=== PATIENT | female | born 1960 | race Caucasian/White ===

== ENCOUNTER → 2016-12-28 | Outpatient (CLI) | payer OTHER ==
[~2016-12-28] MED LIST: ASPI81CH2 PO; ATEN50TA21 PO; CYCL10TA6 PO; GABA1CAP PO; GLC/500 PO; MAGN400T5 PO; MULT-506 PO; OMEGCAP2 PO; POTA-327 PO; POTA20TA16 PO; RANI300T2 PO; TPRSR50 PO
--- NOTE | 2016-12-28 14:49 | DIAGNOSTIC IMAGING REPORT ---
MRI LUMBAR SPINE W/O CONTRAST CLINICAL HISTORY: Low back pain and bilateral leg radiculopathy. TECHNIQUE: Sagittal and axial T1, T2 and STIR images were obtained. COMPARISON STUDY: No previous studies for comparison. OBSERVATIONS: The vertebral bodies and posterior elements appear intact. There is no abnormal bony signal present to suggest a marrow replacement process. L1-2: No disc protrusions or extrusions. No evidence of spinal canal or neural foraminal compromise. L2-3: No disc protrusions or extrusions. No evidence of spinal canal or neural foraminal compromise. L3-4: There is a minor circumferential disc bulge. There is no significant spinal or foraminal stenosis L4-5: There is a disc bulge and small right paracentral disc protrusion. There is mild spinal canal narrowing. There is no significant foraminal stenosis. L5-S1: There is a small broad-based central disc protrusion. There is slight effacement of the anterior thecal sac. There is no significant foraminal narrowing. The conus medullaris and cauda equina appear normal. IMPRESSION: 1. Disc bulge and small right paracentral disc protrusion at the L4-5 level. 2. Small broad-based central disc protrusion at the L5-S1 level. Electronically signed by: Jacob Naranjo M.D. 12/28/2016 2:48 PM Dictated Date/Time: 12/28/2016 2:45 PM
== END | disposition home or self-care (01) ==
LOC: C.MRI 13:29
PROVIDERS: ATTEND Physical Medicine & Rehabilitation
DX: M51.36 Other intervertebral disc degeneration, lumbar region (principal); M51.17 Intervertebral disc disorders with radiculopathy, lumbosacral region

== ENCOUNTER 2017-01-30 13:47 | Emergency (ER) | payer OTHER ==
[~2017-01-30] VITALS: Ht 154.9 cm; Wt 90.0 kg
[~2017-01-30 13:47] MED LIST changes: -ASPI81CH2 PO; -GABA1CAP PO; -MAGN400T5 PO; -POTA20TA16 PO; -TPRSR50 PO
[2017-01-30] MEDS ORDERED: SODIUM CHLORIDE 0.9% 1000ML 1,000 ML IV ONE (14:15)
[2017-01-30] MEDS ORDERED: MoRPHine SULFATE 4 MG/ML 1 ML CARP\\VIAL IV STA (14:24)
[2017-01-30] MEDS ORDERED: ACETAMINOPHEN IV 1,000 MG in EMPTY BAG 0 ML IV STA (14:27)
[2017-01-30 14:47] VITALS: Ht 154.9 cm; Wt 90.0 kg
[2017-01-30 14:55] LABS: URINE APPEARANCE CLEAR (CLEAR); URINE BILIRUBIN NEG (NEG); URINE COLOR YELLOW; URINE EPITHELIAL CELL AUTO >30 /lpf (0-5); URINE NITRITE NEG (NEG); URINE SPECIFIC GRAVITY 1.014 (1.000-1.030); UROBILINOGEN NEG (NEG)
[2017-01-30 14:57] LABS: BASO % 0.5 %; BASO ABS # 0.03 K/uL (0-0.2); COMPLETE YES; EOS % 0.5 %; HEMATOCRIT 44.3 % (37-47); IG% 0.2 %; LYMPH % 17.8 %; LYMPH ABS # 1.01 K/uL (1.2-3.4); MEAN CORPUSCULAR HEMOGLOBIN 30.7 pg (25-34); MEAN CORPUSCULAR HGB CONC 34.1 g/dl (32-36); MEAN PLATELET VOLUME 9.4 fL (7.4-10.4); MONO % 7.9 %; NEUT % 73.1 %; PLATELET COUNT 259 K/uL (130-400); RED BLOOD COUNT 4.92 M/uL (4.2-5.4); WHITE BLOOD COUNT 5.67 K/uL (4.8-10.8)
[2017-01-30 14:58] LABS: MANUAL MICROSCOPIC REQUIRED? NO; REVIEW REQ? NO
[2017-01-30 15:01] LABS: ISTAT CREATININE 0.7 mg/dl (0.6-1.3); ISTAT HEMOGLOBIN 16.7 g/dl (12.0-16.0); ISTAT IONIZED CALCIUM 1.12 mmol/l (1.12-1.32)
[2017-01-30 15:04] VITALS: O2SAT 95
--- NOTE | 2017-01-30 15:04 | EMERGENCY ROOM VISIT NOTE ---
History First contact with patient: 14:06 Chief Complaint: BACK PAIN Stated Complaint: BACK PAIN,CHILLS History of Present Illness The patient is a 56 year old female who presents to the Emergency Room with complaints of low back pain and generalized body aches since yesterday, that got much worse this morning. Patient states history of degenerative disc disease in her low back and sciatica, states she feels this is flaring up. She denies any injury to her lower back, bending or lifting heavy objects recently, denies any numbness or weakness in the legs, difficulty walking, saddle paresthesias, or bowel/bladder dysfunction. She states she was at a fair yesterday and got a significant sunburn. She also states she has not been eating and drinking well and feels dehydrated. She complains of dysuria for the past few days. Some associated chills and nausea, denies vomiting, diarrhea , constipation, hematuria, abdominal pain, chest pain, shortness of breath, palpitations, dizziness or syncope. She took Motrin and her prescribed cyclobenzaprine last night for the pain and muscle spasms, with good improvement. She has not taken any medications for pain today. Review of Systems GENERAL: + Fevers, chills, fatigue. HEENT: Denies dizziness, visual problems, hearing loss, tinnitus. Denies difficulty swallowing or oral lesions. PULMONARY: Denies cough, shortness of breath, sputum production or hemoptysis. CARDIOVASCULAR: Denies chest pain, palpitations, dyspnea on exertion, orthopnea or peripheral edema. GASTROINTESTINAL: Denies diarrhea, constipation, nausea, vomiting, or abdominal pain. GENITOURINARY: + Dysuria. Denies frequency, urgency or nocturia. Denies hematuria. NEUROLOGIC: Denies history of epilepsy, CVA, TIA or chronic headaches. MUSCULOSKELETAL: + Low back pain. Denies history of joint tenderness/swelling. SKIN: Denies rashes or lesions. + Sunburn. PSYCHIATRIC: Denies history of depression or mental illness. ENDOCRINE: + History of diabetes on oral medications. Past Medical/Surgical History Medical Problems: (1) Arthritis (2) Diabetes (3) GERD (gastroesophageal reflux disease) (4) Hypertension Family History No pertinent family history Social History Smoking Status: Never Smoker Marital Status: Housing Status: lives with significant other Occupation Status: unemployed Current/Historical Medications Scheduled Atenolol & Chlorthalidone (Tenoretic 50MG/25MG), 1 TAB PO DAILY Metformin Hcl (Glucophage), 500 MG PO BID Multivitamin (Multivitamin), 1 TAB PO DAILY Ranitidine (Zantac), 300 MG PO BID Allergies Coded Allergies: Aspirin (Verified Adverse Reaction, Unknown, nausea, 02/08/12) Physical Exam Vital Signs Date Time Temp Pulse Resp B/P (MAP) Pulse Ox O2 Delivery O2 Flow Rate FiO2 01/30/17 19:20 38.0 01/30/17 18:53 38.5 102 18 118/84 96 Room Air 01/30/17 18:35 95 16 117/77 95 Nasal Cannula 2.0 01/30/17 16:40 88 16 105/63 97 Room Air 01/30/17 15:45 88 18 99/65 97 Room Air 01/30/17 15:06 91 01/30/17 15:04 88 Room Air 01/30/17 15:04 95 Nasal Cannula 2.0 01/30/17 14:46 94 Room Air 01/30/17 14:46 96 16 113/69 94 Room Air 01/30/17 13:49 39.2 109 18 152/95 93 Room Air Physical Exam CONSTITUTIONAL: No acute distress. Nontoxic appearing. Well appearing and well nourished. Moderately dehydrated. Alert and oriented X 4 with normal affect. HEENT: Normocephalic, atraumatic. Pupils equal, round and reactive to light, EOMI. TMs normal. Pharynx normal. Dry mucous membranes. NECK: Supple, full active range of motion without discomfort. RESPIRATORY: Clear to auscultation bilaterally with no wheezing, crackles, rhonchi or stridor. Equal expansion bilaterally. CARDIOVASCULAR: Regular rate and rhythm with no murmurs, rubs or gallops. Normal peripheral perfusion. No edema. GASTROINTESTINAL: Soft, nontender, nondistended. Bowel sounds present in all quadrants. No CVA tenderness. MUSCULOSKELETAL: Full range of motion of all joints without discomfort. Bilateral paraspinal musculoskeletal tenderness to palpation. No midline spinal tenderness or step-off. INTEGUMENTARY: No rash or other significant dermatologic conditions noted. Severe sunburn noted to upper chest, upper back, bilateral arms, tender to palpation, no blistering noted. NEUROLOGIC: Cranial nerves II-XII grossly intact. No focal neurologic deficits noted. Normal motor, normal sensation, normal reflexes of bilateral lower extremities, normal coordination, normal gait. Normal perineal sensation. Medical Decision & Procedures ER Provider Diagnostic Interpretation: SINGLE VIEW CHEST CLINICAL HISTORY: Fever. Sepsis. FINDINGS: An AP, portable, upright chest radiograph is obtained. No prior studies are available for comparison at the time of dictation. The examination is degraded by portable technique and patient rotation. The cardiomediastinal silhouette is unremarkable. There is mild elevation of the right hemidiaphragm. The lungs and pleural spaces are clear. No pneumothorax is seen. The skeletal structures are osteopenic. The bony thorax is grossly intact. Degenerative change is seen throughout the thoracic spine. IMPRESSION: No acute cardiopulmonary abnormality. Laboratory Results 01/30/17 14:30 Red Blood Count 4.92, Mean Corpuscular Volume 90.0, Mean Corpuscular Hemoglobin 30.7, Mean Corpuscular Hemoglobin Concent 34.1, Mean Platelet Volume 9.4, Neutrophils (%) (Auto) 73.1, Lymphocytes (%) (Auto) 17.8, Monocytes (%) (Auto) 7.9, Eosinophils (%) (Auto) 0.5, Basophils (%) (Auto) 0.5, Neutrophils # (Auto) 4.14, Lymphocytes # (Auto) 1.01, Monocytes # (Auto) 0.45, Eosinophils # (Auto) 0.03, Basophils # (Auto) 0.03 01/30/17 14:30 Test 01/30/17 14:05 01/30/17 14:30 01/30/17 14:47 01/30/17 15:13 Urine Color YELLOW Urine Appearance CLEAR (CLEAR) Urine pH 7.0 (4.5-7.5) Urine Specific [place] 1.014 (1.000-1.030) Urine Protein NEG (NEG) Urine Glucose (UA) NEG (NEG) Urine Ketones NEG (NEG) Urine Occult Blood NEG (NEG) Urine Nitrite NEG (NEG) Urine Bilirubin NEG (NEG) Urine Urobilinogen NEG (NEG) Urine Leukocyte Esterase NEG (NEG) Urine WBC (Auto) 0 /hpf (0-5) Urine RBC (Auto) 0-4 /hpf (0-4) Urine Hyaline Casts (Auto) 0 /lpf (0-5) Urine Epithelial Cells (Auto) >30 /lpf (0-5) Urine Bacteria (Auto) NEG (NEG) White Blood Count 5.67 K/uL (4.8-10.8) Red Blood Count 4.92 M/uL (4.2-5.4) Hemoglobin 15.1 g/dL (12.0-16.0) Hematocrit 44.3 % (37-47) Mean Corpuscular Volume 90.0 fL (80-100) Mean Corpuscular Hemoglobin 30.7 pg (25-34) Mean Corpuscular Hemoglobin Concent 34.1 g/dl (32-36) Platelet Count 259 K/uL (130-400) Mean Platelet Volume 9.4 fL (7.4-10.4) Neutrophils (%) (Auto) 73.1 % Lymphocytes (%) (Auto) 17.8 % Monocytes (%) (Auto) 7.9 % Eosinophils (%) (Auto) 0.5 % Basophils (%) (Auto) 0.5 % Neutrophils # (Auto) 4.14 K/uL (1.4-6.5) Lymphocytes # (Auto) 1.01 K/uL (1.2-3.4) Monocytes # (Auto) 0.45 K/uL (0.11-0.59) Eosinophils # (Auto) 0.03 K/uL (0-0.5) Basophils # (Auto) 0.03 K/uL (0-0.2) RDW Standard Deviation 46.2 fL (36.4-46.3) RDW Coefficient of Variation 14.0 % (11.5-14.5) Immature Granulocyte % (Auto) 0.2 % Immature Granulocyte # (Auto) 0.01 K/uL (0.00-0.02) Est Creatinine Clear Calc Drug Dose 65.4 ml/min Estimated GFR () 74.7 Estimated GFR (Non- 64.5 BUN/Creatinine Ratio 12.5 (10-20) Calcium Level 9.1 mg/dl (8.5-10.1) Magnesium Level 1.4 mg/dl (1.8-2.4) Total Bilirubin 0.8 mg/dl (0.2-1) Direct Bilirubin 0.1 mg/dl (0-0.2) Aspartate Amino Transf (AST/SGOT) 28 U/L (15-37) Alanine Aminotransferase (ALT/SGPT) 46 U/L (12-78) Alkaline Phosphatase 102 U/L (45-117) Total Protein 8.4 gm/dl (6.4-8.2) Albumin 4.1 gm/dl (3.4-5.0) Bedside Hemoglobin 16.7 g/dl (12.0-16.0) Bedside Hematocrit 49 % (37-47) Bedside Sodium 139 mEq/L (135-144) Bedside Potassium 3.2 mEq/L (3.3-5.0) Bedside Chloride 92 mEq/L (101-112) Bedside Total CO2 27 mEq/l (24-31) Anion Gap 24.0 mmol/L (16-25) Bedside Blood Urea Nitrogen 13 mg/dl (7-18) Bedside Creatinine 0.7 mg/dl (0.6-1.3) Bedside Glucose (other) 188 mg/dl (70-99) Bedside Ionized Calcium (Sou[place]a) 1.12 mmol/l (1.12-1.32) Bedside Glucose 154 mg/dl (70-90) Test 01/30/17 18:21 Bedside Lactic Acid Venous 1.48 mmol/L (0.90-1.70) Medications Administered Medications (Trade) Dose Ordered Sig/Maureen Route Start Time Stop Time Status Last Admin Dose Admin Sodium Chloride 1,000 ml @ 2,000 mls/hr Q30M ONCE IV 01/30/17 14:15 01/30/17 14:44 DC 01/30/17 15:01 2,000 MLS/HR Morphine Sulfate (MoRPHine SULFATE INJ) 4 mg NOW STAT IV 01/30/17 14:24 01/30/17 14:25 DC 01/30/17 15:00 4 MG Acetaminophen 1000 mg/Empty Bag 100 ml @ 400 mls/hr NOW STAT IV 01/30/17 14:27 01/30/17 14:41 DC 01/30/17 15:01 400 MLS/HR Magnesium Sulfate (Magnesium Sulfate) 1 gm NOW STAT IV 01/30/17 15:36 01/30/17 15:37 DC 01/30/17 16:22 1 GM Potassium Chloride (Klor-Con M10) 40 meq NOW STAT PO 01/30/17 15:36 01/30/17 15:37 DC 01/30/17 16:22 40 MEQ Sodium Chloride 1,000 ml @ 999 mls/hr Q1H1M STAT IV 01/30/17 17:08 01/30/17 18:08 DC 01/30/17 17:10 999 MLS/HR Ketorolac Tromethamine (Toradol Inj) 15 mg NOW STAT IV 01/30/17 18:57 01/30/17 18:58 DC 01/30/17 19:04 15 MG Medical Decision CC: Patient presenting with complaint of low back pain, body aches, chills Interpretation of Labs: No leukocytosis, no anemia, mild hypokalemia and hypomagnesemia, no other significant abnormalities, normal renal function, normal liver function and lipase. No UTI. Initial lactate slightly elevated, improved and within normal limits after IV hydration. Differential Diagnosis: Includes, but not limited to UTI, pyelonephritis, dehydration, sun poisoning, sepsis. Medication Reconciliation: I attest that I have personally reviewed the patient' s current medication list. Vital signs review: I reviewed the patient's vital signs and interpret them as follows: T: Afebrile; BP: Hypertensive; HR: Tachycardic; RR: Within normal limits; Pulse Ox: Within normal limits. Vital sign reassessment: Fever downtrending, tachycardia improved, normotensive. Blood pressure screening: The patient was found to have normal blood pressure on screening and does not require follow-up for repeat blood pressure check. Summary: Patient was evaluated at bedside, history of physical exam performed. Patient is alert and oriented, nontoxic appearing, moderately dehydrated. Patient noted to be febrile and mildly tachycardic on arrival. Patient noted to have sunburn on her chest and upper back, and bilateral arms, no blistering noted. Hot to the touch. Patient does have bilateral low back pain, no midline tenderness or step-offs. No concerning history or exam findings for cauda equina. Neurologic exam is normal with no deficits, normal strength and sensation in all 4 extremities, normal reflexes bilateral legs, normal perineal sensation. Rectal exam deferred. Orders were placed at bedside for labs, UA and culture, blood cultures, IV fluid boluses to evaluate for possible infection. Urine dip is unimpressive for infection, UA sent to lab. Patient discussed with Dr. Beal, who agrees with my assessment and plan. Labs reviewed, electrolyte abnormalities as above, with replacement given. No other significant abnormalities. Chest x-ray reviewed, no acute abnormalities. Urinalysis is negative for UTI. Slightly elevated lactic acid noted, suspect most likely secondary to dehydration, with noted resolution after IV fluid hydration. No identifiable source of infection. On further review of history, I suspect patient's symptoms are most likely related to sun exposure and dehydration. Patient reassessed multiple times throughout ED stay, her pain is much improved after medications. She also states she feels much better after IV hydration and has been able to urinate without discomfort. I discussed all results with the patient and plan for discharge. I encouraged her to follow closely with her PCP, as well as return precautions should her symptoms worsen. Patient verbalized understanding of all discharge instructions. She was discharged home in stable condition and ambulatory. Impression Primary Impression: Dehydration, moderate Additional Impressions: Sun exposure, moderate Hypokalemia Hypomagnesemia Departure Information Dispostion Home / Self-Care Condition GOOD Referrals Cee Lombardi M.D. (PCP) Patient Instructions [facility], Sunburn Additional Instructions You have been treated in the Emergency Department today for sunburn and dehydration. Laboratory results have ruled out any emergent reasons for further evaluation or admission. It is ESSENTIAL that you maintain adequate hydration with oral fluids! Some suggestions include: - Water is the IDEAL replacement for lost fluids. You should initially sip at the water to help facilitate increased intestinal absorption rate and to decrease the possibility of nausea/vomiting. - Carbohydrate/Electrolyte-Containing Drinks (i.e. Gatorade, Powerade, Pedialyte). All of these are good choices, but it is important to remember that all of these drinks contain a high concentration of sugar. - Popsicles, ice chips, and fruit juices are all other options. - My FAVORITE dehydration remedy is to mix a 1:1 solution of bottled Gatorade with bottled water. This dilution allows for a palatable flavor with added benefit of a reduction in the amount of sugar consumption. You have a bad sunburn. You may develop blisters over your sunburn in the next 1-2 days. If this occurs, keep the skin clean and dry and monitor for signs of infection. You may apply cool compresses to the area of sunburn for comfort. Aloe vera gel is also helpful for improving sunburn pain. Tylenol or ibuprofen as needed for pain. You should avoid significant sun exposure for the next several days until your sunburn is healed. Always apply sunscreen with SPF 30 or higher when you're going to be out in the sun for prolonged periods of time. As with all Emergency Department visits, you should follow-up with your Primary Care Provider in 1-2 days for reevaluation. You should have repeat blood work in the next week to check your potassium level. Return to the Emergency Department if your current symptoms worsen despite treatment course outlined above, or if you develop any of the following symptoms : increased thirst, weakness, dizziness, palpitations, confusion, sluggishness, fainting, inability to sweat, persistent fever/chills, or decreased urine output. Problem Qualifiers Additional Impressions: Sun exposure, moderate Encounter type: initial encounter Qualified Codes: X32.XXXA - Exposure to sunlight, initial encounter
--- NOTE | 2017-01-30 15:08 | DIAGNOSTIC IMAGING REPORT ---
SINGLE VIEW CHEST CLINICAL HISTORY: Fever. Sepsis. FINDINGS: An AP, portable, upright chest radiograph is obtained. No prior studies are available for comparison at the time of dictation. The examination is degraded by portable technique and patient rotation. The cardiomediastinal silhouette is unremarkable. There is mild elevation of the right hemidiaphragm. The lungs and pleural spaces are clear. No pneumothorax is seen. The skeletal structures are osteopenic. The bony thorax is grossly intact. Degenerative change is seen throughout the thoracic spine. IMPRESSION: No acute cardiopulmonary abnormality. Electronically signed by: Ja Nelson M.D. 01/30/2017 3:07 PM Dictated Date/Time: 01/30/2017 3:06 PM
[2017-01-30 15:17] LABS: BUN/CREATININE RATIO 12.5 (10-20); CALCIUM 9.1 mg/dl (8.5-10.1); CREATININE 0.98 mg/dl (0.60-1.20); POTASSIUM 3.2 mmol/L (3.5-5.1)
[2017-01-30 15:34] LABS: MAGNESIUM 1.4 mg/dl (1.8-2.4)
[2017-01-30] MEDS ORDERED: MAGNESIUM SULFATE 1GM / D5W 1 GM BAG IV STA (15:36)
[2017-01-30] MEDS ORDERED: POTASSIUM CHLORIDE 10 MEQ TABCR PO STA (15:36)
[2017-01-30] MEDS ORDERED: SODIUM CHLORIDE 0.9% 1000ML 1,000 ML IV STA (17:08)
[2017-01-30 18:53] VITALS: BP 118/84; PULSE 102; O2SAT 96
[2017-01-30] MEDS ORDERED: KETOROLAC TROMETHAMINE 30 MG/ML VIAL IV STA (18:57)
[2017-01-30 19:20] VITALS: TEMP 38
[2017-03-04] MEDS ORDERED: POTA20TA16 PO (11:35)
[2017-03-04] MEDS ORDERED: MULT-506 PO (11:35)
[2017-03-04] MEDS ORDERED: GABA1CAP PO (11:35)
[2017-03-04] MEDS ORDERED: MAGN400T5 PO (11:35)
[2017-03-09] MEDS ORDERED: ASPI81CH2 PO (12:23)
[2017-07-29] MEDS ORDERED: TPRSR50 PO (10:07)
== END 2017-01-30 19:39 | disposition home or self-care (01) ==
LOC: C.EDB 13:48
DX: E86.0 Dehydration (principal); L55.9 Sunburn, unspecified; X32.XXXA Exposure to sunlight, initial encounter; E87.6 Hypokalemia; E83.42 Hypomagnesemia; M54.40 Lumbago with sciatica, unspecified side; M51.36 Other intervertebral disc degeneration, lumbar region; M19.90 Unspecified osteoarthritis, unspecified site; E11.9 Type 2 diabetes mellitus without complications; K21.9 Gastro-esophageal reflux disease without esophagitis; I10 Essential (primary) hypertension; Z79.84 Long term (current) use of oral hypoglycemic drugs

== ENCOUNTER → 2017-03-09 | Day surgery (SDC) | payer OTHER ==
[2017-03-04 11:36] VITALS: Ht 154.9 cm; Wt 90.9 kg
[~2017-03-09] VITALS: Ht 154.9 cm; Wt 90.9 kg
[~2017-03-09] MED LIST changes: +ASPI81CH2 PO; -CYCL10TA6 PO; +GABA1CAP PO; +IOPAMIDOL INJ 61% 15 ML VIAL ONE; +LIDOCAINE HCL 1% MPF 5 ML VIAL ONE; +MAGN400T5 PO; -OMEGCAP2 PO; -POTA-327 PO; +POTA20TA16 PO; +SODIUM CHLORIDE 0.9% INJ 10 ML VIAL ONE
--- NOTE | 2017-03-09 13:32 | History & Physical Bridge - [place] ---
H&P Re-Evaluation Bridge Note: I have examined the patient, reviewed the History & Physical and in the interval since the performance of the History & Physical I have noted the following changes of clinical significance: No changes noted
[2017-03-09 13:55] VITALS: TEMP 36.5
--- NOTE | 2017-03-09 13:58 | Discharge Instructions ---
Discharge Instructions Date of Service Mar 09, 2017. Visit Reason for Visit: Lumbar Radiculopathy Discharge Discharge Diagnosis / Problem: left leg pain Discharge Goals Goal(s): Decrease discomfort, Improve function Medications Stopped Medications Name(s): asa 81 mg daily, last dose 03/06/17 Activity Recommendations Activity Limitations: resume your previous activity Anesthesia . Post Anesthesia Instructions: If you have had General Anesthesia or IV Sedation: * Do not drive today. * Resume driving when surgeon permits. * Do not make important decisions or sign legal documents today. * Call surgeon for: 1. Temperature elevations greater than 101 degrees F. 2. Uncontrollable pain. 3. Excessive bleeding. 4. Persistent nausea and vomiting. 5. Medication intolerance (nausea, vomiting or rash). * For nausea and vomiting use only clear liquids such as: tea, soda, bouillon until nausea subsides, then gradually increase diet as tolerated. * If you have any concerns or questions, call your surgeon's office. If physician is unavailable and it is an emergency, call 911 or go to the nearest emergency room. . Diet Recommendations Recommended Home Diet: resume previous diet Procedures Procedures Performed: Lumbar Epidural Steroid Injection. Pending Studies Studies pending at discharge: no Medical Emergencies . Who to Call and When: Medical Emergencies: If at any time you feel your situation is an emergency, please call 911 immediately. . Non-Emergent Contact Non-Emergency issues call your: Specialist . . "Provider Documentation" section prepared by Janes De Jesus. .
[2017-03-09 14:04] VITALS: BP 132/95; PULSE 71; O2SAT 98
--- NOTE | 2017-03-09 16:19 | [facility] Operative Report ---
Operative Report Date of Service Mar 09, 2017. Operative Report DICTATED BY: Janes De Jesus M.D. DATE OF SURGERY: 03/09/17. DATE OF OPERATION: 03/09/2017 PREOPERATIVE DIAGNOSIS: L4-L5 and L5-S1 disc bulges with a right L5 radiculopathy. POSTOPERATIVE DIAGNOSIS: Same. PROCEDURE: Right L5-S1 paramedian intralaminar epidural steroid injection under fluoroscopic guidance. INDICATIONS: The patient is a 56-year-old white female who presents today for an epidural injection to decrease discomfort and improve function as she has failed conservative physical therapy and medications. She has classic pain radiating down the L5 dermatomal distribution of her right leg. CONSENT: Verbal and written consent was obtained from the patient. Risks and benefits were reviewed. Risks include but are not limited to epidural hematoma, allergic reaction, and dural puncture. The patient wishes to proceed. PROCEDURE: The patient was taken back to the special procedures room of [facility] where she was maintained in a prone position. Backside was cleansed with Betadine x3 and a dry sterile dressing was applied. Fluoroscope was used to identify the L5-S1 intralaminar space and overlying skin was anesthetized with 4 mL of lidocaine 1% with a 25 gauge 1.5-inch needle. A 22-gauge 3-1/2 inch Tuohy needle was then directed down towards the intralaminar space and was advanced under lateral fluoroscopic guidance and loss of resistance was noted and then Isovue-300 contrast 1 mL was injected in which demonstrated epidural uptake pattern with spread that was confirmed with both AP and lateral views. She then underwent injection after negative aspiration of 40 mg of Depo-Medrol and 4 mL of preservative free sodium chloride. Injection was well tolerated. DISPOSITION: 1. The patient is taken out into the discharge recovery area where she will be discharged home once discharge criteria have been met. 2. Follow up in the [facility] office in 2-4 weeks. I attest to the content of the Intraoperative Record and any orders documented therein. Any exceptions are noted below. I attest to the content of the Intraoperative Record and any orders documented therein. Any exceptions are noted below.
== END | disposition home or self-care (01) ==
LOC: X.SURG 12:10
PROVIDERS: ATTEND Physical Medicine & Rehabilitation
DX: M51.17 Intervertebral disc disorders with radiculopathy, lumbosacral region (principal)

== ENCOUNTER → 2017-08-17 | Day surgery (SDC) | payer SELFPAY ==
[2017-07-29 10:08] VITALS: Ht 154.9 cm; Wt 90.9 kg
[~2017-08-17] VITALS: Ht 154.9 cm; Wt 90.9 kg
[~2017-08-17] MED LIST changes: -ATEN50TA21 PO; +CYCL5TAB PO; -IOPAMIDOL INJ 61% 15 ML VIAL ONE; -LIDOCAINE HCL 1% MPF 5 ML VIAL ONE; +METH4PAK PO; +OXYC-57 PO; +OXYC1TAB3 PO; -SODIUM CHLORIDE 0.9% INJ 10 ML VIAL ONE; +TPRSR50 PO
== END | disposition home or self-care (01) ==
LOC: C.PAT 13:40 → EDSTATUS 15:15
PROVIDERS: ATTEND Physical Medicine & Rehabilitation
DX: Z01.818 Encounter for other preprocedural examination (principal); Z53.8 Procedure and treatment not carried out for other reasons

== ENCOUNTER 2017-08-23 12:35 | Emergency (ER) | payer OTHER ==
[~2017-08-23] VITALS: Ht 154.9 cm; Wt 90.9 kg
[~2017-08-23 12:35] MED LIST changes: -CYCL5TAB PO; -METH4PAK PO; -OXYC-57 PO; -OXYC1TAB3 PO
[2017-08-23 13:05] VITALS: Ht 154.9 cm; Wt 90.9 kg
[2017-08-23] MEDS ORDERED: OXYC-57 PO (13:45)
[2017-08-23 13:55] VITALS: BP 162/99; PULSE 96; TEMP 37; O2SAT 96
--- NOTE | 2017-08-24 10:17 | EMERGENCY ROOM VISIT NOTE ---
ED Visit Note First contact with patient: 13:25 Chief Complaint: Back pain. History of Present Illness: Ms. Gray is a 56-year-old white female who ambulates into the ED accompanied by male friend complaining of lumbar back pain. Historically patient reports patient has a history of L4-L5 and L5-S1 disc bulging with right lower extremity radiculopathy. She is currently under the care of Dr. De Jesus and received steroids injections. 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 She reports initially it was mild but has gradually increased in intensity. Currently she describes her pain as a sharp and achy sensation. She rates her discomfort 10/10. She reports her pain is radiating up into the thoracic back and down into the upper right gluteal area. Her pain worsens with palpation in all movements of the lumbar spine. She has not identified any alleviating factors related to her discomfort. She has been using her prescribed gabapentin without relief of her discomfort. She attempted to contact Dr. De Jesus but was unsuccessful. She denies any associated symptoms including fevers, chills, sweats, skin eruptions, skin color changes, recent direct trauma, repetitive trauma, abdominal pain, nausea, vomiting, diarrhea, constipation, rectal bleeding, black /tarry stools, urinary symptoms, hematuria, vaginal bleeding, vaginal discharge , genital paresthesias, bowel and bladder dysfunction, lower extremity weakness/ numbness/tingling. Review of Systems: As noted above in history of present illness. 8 body systems were reviewed and found to be negative as noted above. Past Medical History: As previously noted and diabetes, hypertension Current Medications: Zantac, Glucophage, gabapentin, potassium, mag oxide, multivitamins, metoprolol. Allergies to Medications: Aspirin. Social History: Patient is not employed; she feels safe in her home environment ; she denies tobacco and alcohol use. Physical Examination: Vital Signs: Date Time Temp Pulse Resp B/P (MAP) Pulse Ox O2 Delivery O2 Flow Rate FiO2 08/23/17 13:55 37.0 96 18 162/99 96 08/23/17 13:14 37.0 96 18 176/112 96 Room Air 08/23/17 13:05 37.0 94 18 170/99 95 Room Air GENERAL: 56-year-old female in moderate distress due to pain, nontoxic-appearing , afebrile and hemodynamically stable. NEUROLOGICAL: Awake, alert and oriented to person, place and time. Answering questions appropriately and following commands. Normal gait. Good hand eye coordination. No focal motor or sensory deficits. SKIN: Warm, dry and pink. No soft tissue eruptions or trauma noted. HEENT: Atraumatic and normocephalic. BACK: No tenderness over the bony cervical spine. Mild tenderness over the lower thoracic vertebrae and paraspinous muscles without spasm. Moderate tenderness over the lower lumbar spines without bony deformity and moderate tenderness throughout the paraspinous muscles without spasm. Decreased range of motion in the waist with all movement of the lumbar spine. Unable to perform a qualified straight leg raise test due to patient's inability to relax. No CVA tenderness. THORAX: Lungs sounds are clear to auscultation and equal bilaterally with symmetrical chest wall. ABDOMEN: Obese, soft and nontender. Positive bowel sounds in all quadrants. No guarding, rigidity or organomegaly. LOWER EXTREMITIES: Moves legs well on command and with purpose. 4/5 muscle strength in all movements of the hips, knees and ankles. 2+ patellar and Achilles tendon reflexes intact and equal bilaterally. She was able to distinguish light sensations through all dermatomes of the lower legs and feet. No calf tenderness or cords. ED Course: Patient is assessed as noted above. Patient's medication list was reviewed. I did have a lengthy conversation with the patient about imaging studies including CT and MRI; patient refused these tests and would be agreeable to x- rays at this time. Because of her pre-existing back issues I did not feel a x- ray would be of significant benefit because there are no additional trauma. Patient was educated about today's findings and instructed on her treatment plan ; she verbalized understanding and agreement with this plan. Clinical Impression: Lumbar back pain. Decision-Making: Initially my differential diagnosis I considered back sprain, acute on chronic pain, ruptured disc and other causes. Patient's blood pressure: Elevated. Blood pressure disposition: Situational. Disposition: Patient discharged home in stable condition accompanied by her ; prior to departure she was reassessed and subjectively reported she was feeling the same. Plan: Comfort measures were discussed with the patient including rest, the use of ice and heat, proper lifting and moving techniques, and a sliding pain medication scale of ibuprofen, acetaminophen and Percocet; she was given appropriate narcotic precautions and her name was checked on the state database and no red flags were noted. Patient was encouraged to follow-up with Dr. De Jesus's office for continued care and treatment. Patient was encouraged return ED for worsening pain, fevers, abdominal pain, leg weakness/numbness/tingling, numbness or tingling in the rectal or genital areas, inability control bowel and bladder functions or any new/concerning symptoms.
[2017-08-25] MEDS ORDERED: OXYC1TAB3 PO ×2 (14:42→14:53)
== END 2017-08-23 13:56 | disposition home or self-care (01) ==
LOC: C.EDB 12:36 → C.EDD 13:56
DX: M54.16 Radiculopathy, lumbar region (principal); M51.26 Other intervertebral disc displacement, lumbar region; M51.27 Other intervertebral disc displacement, lumbosacral region; E11.9 Type 2 diabetes mellitus without complications; I10 Essential (primary) hypertension; Z79.84 Long term (current) use of oral hypoglycemic drugs

== ENCOUNTER 2017-08-25 12:23 | Emergency (ER) | payer OTHER ==
[~2017-08-25] VITALS: Ht 154.9 cm; Wt 91.0 kg
[~2017-08-25 12:23] MED LIST changes: +GABA-1693 PO; -GABA1CAP PO; +OXYC-57 PO; +POTA-639 PO; -POTA20TA16 PO
[2017-08-25 12:26] VITALS: TEMP 37.4; Ht 154.9 cm; Wt 91.0 kg
[2017-08-25] MEDS ORDERED: MoRPHine SULFATE 10 MG/ML CARP/VIAL IM STA (13:04)
--- NOTE | 2017-08-25 13:09 | EMERGENCY ROOM VISIT NOTE ---
History First contact with patient: 12:56 Chief Complaint: BACK PAIN Stated Complaint: BACK PAIN History of Present Illness The patient is a 56 year old female who presents to the Emergency Room via private vehicle accompanied by with complaints of "back pain". The patient states she has a history of low back pain and is been followed with Dr. De Jesus who provides steroid injections in the low back. She states that this has been ongoing for about 10 years. She states that most recently on August 15 she fell over a log and struck her left shoulder. She states she twisted and now she has pain in her low back. She states she was seen here 2 days ago and declined advanced imaging feeling is it was not appropriate. She states that now the pain is worse, and she cannot move. The pain only radiates down the leg slightly favoring right more than left. She denies any fevers, chest pain, shortness of breath, abdominal pain, lower extremity weakness, bowel or bladder incontinence or numbness or tingling in the genital region. She rates her overall pain as a 10/10. Review of Systems A complete 10-point Review of Systems was discussed with the patient, with pertinent positives and negatives listed in the History of Present Illness. All remaining Review of Systems questions can be considered negative unless otherwise specified. Past Medical/Surgical History Medical Problems: (1) Arthritis (2) Diabetes (3) GERD (gastroesophageal reflux disease) (4) Hypertension Family History No pertinent family history Social History Smoking Status: Never Smoker Marital Status: Housing Status: lives with significant other Occupation Status: unemployed Current/Historical Medications Scheduled Aspirin (Aspirin), 1 TAB PO DAILY Cyclobenzaprine Hcl (Flexeril), 5 MG PO TID Gabapentin (Neurontin), 100 MG PO TID Magnesium Oxide (Mag-Ox), 400 MG PO QAM Metformin Hcl (Glucophage), 500 MG PO BID Methylprednisolone (Medrol Dosepak), 0 PO DAILY Metoprolol Succinate (Metoprolol Succinate ER), 1 TAB PO QAM Multivitamin (Multivitamin), 1 TAB PO QAM Potassium Ext Rel (Klor-Con), 20 MEQ PO QAM Ranitidine (Zantac), 300 MG PO BID Scheduled PRN Oxycodone Ir (Roxicodone Ir), 1-2 TAB PO Q4H PRN for Pain Physical Exam Vital Signs Date Time Temp Pulse Resp B/P (MAP) Pulse Ox O2 Delivery O2 Flow Rate FiO2 08/25/17 14:53 97 18 149/99 98 08/25/17 12:26 37.4 100 18 160/119 97 Room Air Physical Exam VITAL SIGNS - Vital signs and nursing notes were reviewed. Stable. Hypertensive. GENERAL -56-year-old female appearing her stated age who is in no acute distress. Communicates well with provider and answers questions appropriately. SKIN - Without rashes. No petechial rashes. HEAD - NC/AT. EYES -Sclera anicteric. EARS - No deformities of external structures noted on gross examination bilaterally. NOSE - Midline and without cyanosis. No epistaxis or purulent drainage noted. MOUTH/OROPHARYNX - Without perioral cyanosis. LUNGS - Chest wall symmetric without accessory muscle use, intercostals retractions, or central cyanosis. Normal vesicular breath sounds CTA B/L. No wheezes, rales, or rhonchi appreciated. CARDIAC - RRR with S1/S2. No murmur, rubs, or gallops appreciated. ABDOMEN - Abdominal contour normal without pulsations or visible masses. BS normoactive all four quadrants. No tenderness, palpable masses, hepatosplenomegaly, or ascites noted. MUSCULOSKELETAL: There is tenderness to palpation overlying the inferior thoracic spinous processes as well as a lumbar spine. There is also paraspinous muscular tenderness appreciated working inferiorly in the lumbar spine. EXTREMITIES - No clubbing or peripheral cyanosis. No pretibial edema present. +5 /5 strength noted in UE/LE bilaterally. NEUROLOGIC - Cranial nerves II through XII grossly intact. Sensory intact to light touch throughout. PSYCH - A&O, and cooperates fully with examiner. Pt is very pleasant and interacts well with examiner. Medical Decision & Procedures ER Provider Diagnostic Interpretation: THORACIC SPINE WITHOUT CT DOSE: HISTORY: Trauma. Pain. Fall, Twisting mechanism, now pain midline thoracic and lumbar TECHNIQUE: Multiaxial CT images of the thoracic spine were performed and reformatted in the sagittal and coronal plane without the use of contrast. A dose lowering technique was utilized adhering to the principles of ALARA. COMPARISON: None. FINDINGS: No fractures. No subluxation. Paraspinal soft tissues are unremarkable. Moderate degenerative disc changes throughout. Moderate reactive osteophytic change of the vertebral endplates. Posterior elements are intact throughout. IMPRESSION: 1. No acute bony abnormality. 2. Moderate degenerative disc change throughout the entire thoracic region. The above report was generated using voice recognition software. It may contain grammatical, syntax or spelling errors. Electronically signed by: Axel Davis M.D. 08/25/2017 2:10 PM Dictated Date/Time: 08/25/2017 2:[address] DOSE: 2388.44 mGy.cm HISTORY: Fall, Twisting mechanism, now pain midline thoracic and lumbar TECHNIQUE: Multiaxial CT images of the lumbar spine were performed and reformatted in the sagittal and coronal plane without the use of contrast. A dose lowering technique was utilized adhering to the principles of ALARA. COMPARISON: Lumbar spine CT 11/24/2014 and lumbar spine MRI 12/28/2016. FINDINGS: No fracture or subluxation within the lumbar spine. Mild facet degenerative changes within the lower lumbar spine. Mild disc space narrowing and vacuum phenomenon at L4-5. Moderate to severe disc space narrowing at L5-S1. Small broad-based posterior disc bulges at L4-5 and L5-S1, unchanged. Mild bilateral neural foraminal narrowing at L4-L5 and moderate bilateral neural frontal narrowing at L5-S1. IMPRESSION: 1. No fracture or subluxation within the lumbar spine. 2. Degenerative changes as described above. This is not significantly changed. Electronically signed by: Eddie Hood M.D. 08/25/2017 2:15 PM Dictated Date/Time: 08/25/2017 2:09 PM Medications Administered Medications (Trade) Dose Ordered Sig/Maureen Route Start Time Stop Time Status Last Admin Dose Admin Morphine Sulfate (MoRPHine SULFATE INJ) 10 mg NOW STAT IM 08/25/17 13:04 08/25/17 13:06 DC 08/25/17 13:10 10 MG ED Course Full evaluation was had in room D9. Thorough review was had of her previous visit. CT of the thoracic and lumbar spine were ordered. Morphine 10 mg IM for pain. Reevaluated and CT scan results were discussed with patient. She appears stable for outpatient management. She passed her ambulatory trial. Medical Decision Patient was seen and evaluated as above. She presents with today with low back pain. She is nontoxic on exam. She is hypertensive. There is no evidence of cauda equina syndrome on exam. I did to elicit reflexes before pain medication and she declined noting that she was in too much pain. Decision was made to provide her morphine as well as obtain CT scan of the thoracic and lumbar spine as evident by exquisite tenderness to the spinous processes of this region. Results as above. I do not believe that an MRI at this time is warranted she does not have any evidence of cauda equina syndrome and she is neurovascularly intact. CT scan reveals degenerative change. I believe that she is likely exacerbated her chronic underlying lumbar ailments. She was reevaluated and the pain medication did help take the edge off. Handle toward trial was had between myself and the patient and she was able to do well. She was offered inpatient management for back pain and declined noting that she would like to go home and follow with Dr. De Jesus. I believe this is reasonable. She'll be given a short course of pain medication to include oxycodone, Flexeril and steroids. I did accidentally send these to the wrong pharmacy. 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 I then sent these to the [facility]. She appears stable for outpatient management. She was educated upon management, educated upon worrisome symptoms in which to return, had questions answered prior to discharge, and was discharged home in good condition. No red flag identified in the [place] drug monitoring system. In evaluation treatment this patient following differential diagnoses were obtained:, Fracture, dislocation, acute exacerbation of chronic low back pain, cauda equina syndrome, among others. There is no evidence of cauda equina syndrome my examination. Impression Primary Impression: Low back pain Departure Information Dispostion Home / Self-Care Condition GOOD Prescriptions Methylprednisolone (MEDROL DOSEPAK) 4 Mg Roney 0 PO DAILY, #1 PKT Prov: Valentino Escudero PA-C 08/25/17 Oxycodone Ir (Roxicodone Ir) 5 Mg Tab 1-2 TAB PO Q4H Y for Pain, #20 TAB For Initial Treatment Prov: Valentino Escudero PA-C 08/25/17 Cyclobenzaprine Hcl (FLEXERIL) 5 Mg Tab 5 MG PO TID for 7 Days, #21 TAB PRN Prov: Valentino Escudero PA-C 08/25/17 Referrals Cee Lombardi M.D. (PCP) Patient Instructions My [facility] Additional Instructions You have been treated in the Emergency Department for Back Pain. You have received pain medicine in the emergency department which impairs your ability to operate a vehicle. It is illegal for you to drive after receiving these medicines. You have been prescribed Oxy IR to be used for pain control. This is a narcotic medication. You cannot drive or consume alcohol while on this medicine. This medicine should only be used for pain that cannot be controlled with over-the- counter pain medicines. You have been prescribed Flexeril (cyclobenzaprine) 1-2 tabs orally, three times per day. Do NOT exceed 30 mg (6 tabs) per day. Take your first dose at bedtime as it can make you drowsy. Always take all medications as prescribed. You have been prescribed a Medrol Dosepak. Take this medication as prescribed. You should take the COMPLETE 6-day course of this medication. This is an anti- inflammatory medicine that will help to minimize your symptoms. For pain control, you can use the following [id number] medicines (if >12 yo): - Regular strength (325mg/tab) Tylenol (acetaminophen) 2 tabs every 4-6 hours as needed. Do not exceed 12 tablets in a 24 hour period. Avoid taking more than 3 grams (3000 mg) of Tylenol per day. This includes any other sources of acetaminophen you may take on a regular basis. - Regular strength (200 mg/tab) Advil (ibuprofen) 1-2 tabs every 4-6 hours as needed. Do not exceed a dose of 3200 mg per day. If this is an acute injury, ice can be applied to the area of pain for the first 3 days to help decrease pain and inflammation. After the first 3 days, a heating pad can be used over the area for continued soothing relief. You should schedule a follow-up appointment in 2-3 days with your Primary Care Provider for further evaluation and treatment of your back pain and Dr. De Jesus. Return to the Emergency Department if your current symptoms worsen despite treatment course outlined above, or if you develop any of the following symptoms : intractable pain despite aforementioned treatment course, loss of control of your bowel or bladder, numbness or tingling in your groin, or development of a fever.
--- NOTE | 2017-08-25 14:11 | DIAGNOSTIC IMAGING REPORT ---
THORACIC SPINE WITHOUT CT DOSE: HISTORY: Trauma. Pain. Fall, Twisting mechanism, now pain midline thoracic and lumbar TECHNIQUE: Multiaxial CT images of the thoracic spine were performed and reformatted in the sagittal and coronal plane without the use of contrast. A dose lowering technique was utilized adhering to the principles of ALARA. COMPARISON: None. FINDINGS: No fractures. No subluxation. Paraspinal soft tissues are unremarkable. Moderate degenerative disc changes throughout. Moderate reactive osteophytic change of the vertebral endplates. Posterior elements are intact throughout. IMPRESSION: 1. No acute bony abnormality. 2. Moderate degenerative disc change throughout the entire thoracic region. The above report was generated using voice recognition software. It may contain grammatical, syntax or spelling errors. Electronically signed by: Axel Davis M.D. 08/25/2017 2:10 PM Dictated Date/Time: 08/25/2017 2:08 PM
--- NOTE | 2017-08-25 14:17 | DIAGNOSTIC IMAGING REPORT ---
LUMBAR SPINE CT CT DOSE: 2388.44 mGy.cm HISTORY: Fall, Twisting mechanism, now pain midline thoracic and lumbar TECHNIQUE: Multiaxial CT images of the lumbar spine were performed and reformatted in the sagittal and coronal plane without the use of contrast. A dose lowering technique was utilized adhering to the principles of ALARA. COMPARISON: Lumbar spine CT 11/24/2014 and lumbar spine MRI 12/28/2016. FINDINGS: No fracture or subluxation within the lumbar spine. Mild facet degenerative changes within the lower lumbar spine. Mild disc space narrowing and vacuum phenomenon at L4-5. Moderate to severe disc space narrowing at L5-S1. Small broad-based posterior disc bulges at L4-5 and L5-S1, unchanged. Mild bilateral neural foraminal narrowing at L4-L5 and moderate bilateral neural frontal narrowing at L5-S1. IMPRESSION: 1. No fracture or subluxation within the lumbar spine. 2. Degenerative changes as described above. This is not significantly changed. Electronically signed by: Eddie Hood M.D. 08/25/2017 2:15 PM Dictated Date/Time: 08/25/2017 2:09 PM
[2017-08-25] MEDS ORDERED: METH4PAK PO ×2 (14:42→14:53)
[2017-08-25] MEDS ORDERED: CYCL5TAB PO ×2 (14:42→14:53)
[2017-08-25] MEDS ORDERED: OXYC-90 PO ×2 (14:42→14:53)
[2017-08-25 14:53] VITALS: BP 149/99; PULSE 97; O2SAT 98
== END 2017-08-25 14:50 | disposition home or self-care (01) ==
LOC: C.EDB 12:24 → C.EDD 14:50
DX: M54.5 Low back pain (principal); E11.9 Type 2 diabetes mellitus without complications; I10 Essential (primary) hypertension; K21.9 Gastro-esophageal reflux disease without esophagitis; Z79.82 Long term (current) use of aspirin; Z79.84 Long term (current) use of oral hypoglycemic drugs; Z79.899 Other long term (current) drug therapy